=== PATIENT | male | born 1990 | race Caucasian/White ===

== ENCOUNTER 2019-12-20 05:58 | Observation (INO) | payer OTHER ==
[~2019-12-20] VITALS: Ht 180.3 cm; Wt 75.9 kg
--- NOTE | 2019-12-20 06:01 | NUR ---
EZEKIEL FROM [facility] FOR SEIZURE AND NEURO CONSULT. 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 UPON ARRIVAL TO [place], PT IS AAOX4, DENIES PAIN, REPORTS "ONLY MY RIGHT LEG TREMORS AT TIMES"
--- NOTE | 2019-12-20 06:17 | NUR ---
DR FRANCO AT BEDSIDE DISCUSSING PLAN OF CARE WITH PT. PLANS TO ADMIT
[2019-12-20] MEDS ORDERED: SODIUM CHLORIDE FLUSH 10ML SYR IVF ONE (06:30)
--- NOTE | 2019-12-20 06:30 | NUR ---
Note jacqueline in [facility] - 12/20/19 at 0635 by CSPIVEY PT TO CT Addendum: 12/20/19 at 0634 by CSPIVEY Javid phillips in [facility] - 12/20/19 at 0635 by CSPIVEY PT TO MRI
--- NOTE | 2019-12-20 06:53 | NUR ---
REPORT TO EVA ALLEN
--- NOTE | 2019-12-20 06:54 | NUR ---
report from carla [email or web address] as
[2019-12-20] MEDS ORDERED: GADOTERATE 7.5 MMOL/15 ML SYR ONE (07:07)
--- NOTE | 2019-12-20 07:25 | NUR ---
PT STILL IN MRI. ATTEMTP TO CALL REPORT, FLOOR RN IN RAPID.
[2019-12-20 07:47] LABS: BASOPHILS # (AUTO) 0.03 x10^3/uL (0-0.1); BASOPHILS % (AUTO) 0 % (0-1); EOSINOPHILS % (AUTO) 0 % (1-7); MD NO
--- NOTE | 2019-12-20 07:55 | NUR ---
REPORT TO MATT ALLEN.
[2019-12-20 08:18] LABS: EOSINOPHILS # (AUTO) 0.01 x10^3/uL (0-0.4); LYMPHOCYTES % (AUTO) 9 % (22-44); MEAN CORPUSCULAR HEMOGLOBIN 30.8 pg (27.5-34.5); MEAN CORPUSCULAR VOLUME 93.4 fL (81-97); MEAN PLATELET VOLUME 8.6 fL (7.4-10.4); MONOCYTES # (AUTO) 0.71 x10^3/uL (0.2-0.8); MONOCYTES % (AUTO) 5 % (2-9); NEUTROPHILS # (AUTO) 11.79 x10^3/uL (1.8-6.8); NEUTROPHILS % (AUTO) 85 % (42-75); PLATELET COUNT 259 x10^3/uL (130-400); RED BLOOD COUNT 4.86 x10^6/uL (4.38-5.82); RED CELL DISTRIBUTION WIDTH 13.7 % (9.4-14.8)
[2019-12-20 08:30] LABS: ALANINE AMINOTRANSFERASE 83 U/L (12-78); ALBUMIN 4.1 g/dL (3.4-5.0); ANION GAP 7 mmol/L (5-15); CALCIUM 9.2 mg/dL (8.5-10.1); CHLORIDE 108 mmol/L (98-107); CREATININE 0.92 mg/dL (0.7-1.3)
[2019-12-20] MEDS ORDERED: ENALAPRILAT 1.25 MG/ML, 2ML IVPush PRN (08:30)
[2019-12-20] MEDS ORDERED: ONDANSETRON ODT 4 MG PO PRN (08:30)
[2019-12-20] MEDS ORDERED: MEDROL 4MG DOSEPAK PO SCH (08:30)
[2019-12-20] MEDS ORDERED: ACETAMINOPHEN 325 MG TABLET PO PRN (08:30)
[2019-12-20] MEDS ORDERED: morphine SULFATE 10 MG/ML, 1ML IVPush PRN (08:30)
[2019-12-20] MEDS ORDERED: DIPHENHYDRAMINE 25 MG CAPSULE PO PRN (08:30)
[2019-12-20] MEDS ORDERED: ONDANSETRON 2MG/ML, 2ML IVPush PRN (08:30)
[2019-12-20 08:32] VITALS: BP 133/84
[2019-12-20 08:32] LABS: ALKALINE PHOSPHATASE 47 U/L (45-117); BILIRUBIN,TOTAL 0.3 mg/dL (0.2-1.0); TOTAL PROTEIN 7.3 g/dL (6.4-8.2)
[2019-12-20] MEDS: LACTATED RINGERS 1,000 ML IV SCH ×2 (08:50→21:50)
[2019-12-20] MEDS ORDERED: LEVETIRACETAM 100 MG/ML, 5ML IV SCH (09:00)
[2019-12-20] MEDS: LEVETIRACETAM 500 MG in SODIUM CHLORIDE 0.9% 100 ML IV SCH ×2 (10:03→20:36)
[2019-12-20 15:00] VITALS: BP 138/72
[2019-12-20 15:05] LABS: MICROSCOPIC NOT IND
[2019-12-20 15:16] LABS: AMPHETAMINE SCREEN, URINE Negative (Negative); BARBITURATE SCREEN, URINE Negative (Negative); BENZODIAZEPINE SCREEN, URINE Negative (Negative); CANNABINOID SCREEN, URINE Negative (Negative); COCAINE SCREEN, URINE Negative (Negative); METHADONE SCREEN, URINE Negative (Negative); OPIATE SCREEN, URINE Negative (Negative)
[2019-12-20 18:51] VITALS: BP 130/80
[2019-12-21 01:18] VITALS: BP 130/68
[2019-12-21 06:03] LABS: ANION GAP 7 mmol/L (5-15); CALCIUM 8.9 mg/dL (8.5-10.1); CHLORIDE 109 mmol/L (98-107)
[2019-12-21 06:04] LABS: CREATININE 0.88 mg/dL (0.7-1.3)
[2019-12-21 07:05] VITALS: BP 146/85
[2019-12-21] MEDS: LEVETIRACETAM 500 MG in SODIUM CHLORIDE 0.9% 100 ML IV SCH (09:01)
[2019-12-21] MEDS: LACTATED RINGERS 1,000 ML IV SCH (10:46)
[2019-12-21] MEDS ORDERED: LEVE500T53 PO (12:51)
== END 2019-12-21 14:29 | disposition home or self-care (01) ==
LOC: ED 06:57 → SUATTDRO 07:09 → ORIP 08:03 → 4WST 08:29 → DCLOUNGE 12-21 14:19
PROVIDERS: ADMIT Hospitalist; ATTEND Internal Medicine
DX: G40.89 Other seizures (principal); D32.9 Benign neoplasm of meninges, unspecified; R41.0 Disorientation, unspecified; F10.10 Alcohol abuse, uncomplicated; G93.89 Other specified disorders of brain; C44.90 Unspecified malignant neoplasm of skin, unspecified; Z86.59 Personal history of other mental and behavioral disorders; Z79.899 Other long term (current) drug therapy
CPT/HCPCS: 36415; 70553; 80048; 80053; 80307; 81003; 83735; 85025; 93005; 96361; 96365; 96366; 99285; A9575; G0378; J1953; J7120; J7509; Q0163